=== PATIENT | male | born 1960 ===

== ENCOUNTER 2021-05-29 20:30 | Emergency (ER) | payer MEDICAID, OTHER, SELFPAY ==
[2021-05-29 20:58] LABS: HEMATOCRIT 45.6 % (42.0-52.0); HEMOGLOBIN 13.1 g/dl (13.5-17.5); MEAN CORPUSCULAR HEMOGLOBIN 28.2 pg (27.0-33.0); MEAN CORPUSCULAR HGB CONC 28.7 g/dl (32.0-36.5); MEAN CORPUSCULAR VOLUME 98.3 fl (80.0-96.0); PLATELET COUNT, AUTOMATED 345 10^3/uL (150-450); RED BLOOD COUNT 4.64 10^6/uL (4.30-6.10); WHITE BLOOD COUNT 8.6 10^3/uL (4.0-10.0)
[2021-05-29 21:16] LABS: ATYPICAL LYMPH 2 % (0-5); LYMPHOCYTES 38 % (16-44); MONOCYTES 6 % (0-5); NEUTROPHILS 51 % (28-66)
[2021-05-29 21:17] LABS: PLATELET ESTIMATE NORMAL (NORMAL)
[2021-05-29 21:33] LABS: CK-MB VALUE MASS 18.2 NG/ML (<3.6); MB/CK RELATIVE INDEX 0.72 (< OR =4)
[2021-05-29 21:38] LABS: ALBUMIN 2.5 GM/DL (3.2-5.2); ALT/SGPT 116 U/L (12-78); BILIRUBIN,DIRECT 0.2 MG/DL (0.0-0.2); BILIRUBIN,TOTAL 0.3 MG/DL (0.2-1.0); BLOOD UREA NITROGEN 27 MG/DL (7-18); CALCIUM LEVEL 8.9 MG/DL (8.5-10.1); CARBON DIOXIDE LEVEL 16 MEQ/L (21-32); CHLORIDE LEVEL 99 MEQ/L (98-107); CREATININE FOR GFR 1.67 MG/DL (0.70-1.30); ETHYL ALCOHOL (ETHANOL) < 0.003 % (0.000-0.010); GLOMERULAR FILTRATION RATE 46.6 (>56); GLUCOSE, FASTING 193 MG/DL (70-100); LIPASE 215 U/L (73-393); POTASSIUM SERUM 6.8 MEQ/L (3.5-5.1); SODIUM LEVEL 140 MEQ/L (136-145); TOTAL PROTEIN 5.6 GM/DL (6.4-8.2)
== END 2021-05-29 23:35 | disposition expired ==
LOC: M ED 20:30 → EDBD 20:30 → M ED 23:35
DX: I46.9 Cardiac arrest, cause unspecified (principal)